=== PATIENT | male | born 1940 | race Caucasian/White ===

== ENCOUNTER 2016-12-26 15:54 | Inpatient (IN) | payer MEDICARE ==
[2016-12-26] MEDS ORDERED: Chloroprocaine 2%* 20 ML VIAL ONE (17:10)
[2016-12-26] MEDS ORDERED: Midazolam* 1 MG/ML 2 ML VIAL (2 MG) ONE ×2 (17:11→17:33)
[2016-12-26] MEDS ORDERED: fentaNYL* 50 MCG/ML 2 ML VIAL (100 MCG VIAL) ONE ×2 (17:11→19:24)
[2016-12-26] MEDS ORDERED: Ondansetron INJ* 2 MG/ML VIAL IV PRN (17:47)
[2016-12-26] MEDS ORDERED: HYDROcodone/ACETAMIN 5-325 MG* 1 TAB PO PRN (17:47)
[2016-12-26] MEDS ORDERED: Phenylephrine IV* 40 MCG/ML 10 ML SYRINGE IV PUSH PRN (18:23)
[2016-12-26] MEDS ORDERED: Furosemide IV* 10 MG/ML 2 ML VIAL (20 MG) ONE (19:19)
[2016-12-26] MEDS: fentaNYL* 50 MCG/ML 2 ML VIAL (100 MCG VIAL) IV PRN ×2 (19:25→19:31)
[2016-12-26] MEDS ORDERED: Acetaminophen TAB* 325 MG PO PRN (20:01)
[2016-12-26] MEDS: oxyCODONE/Acetamin 5/325 MG* TAB PO PRN (20:17)
[2016-12-26] MEDS: Oxybutynin TAB* 5 MG PO SCH (22:02)
[2016-12-27] MEDS: oxyCODONE/Acetamin 5/325 MG* TAB PO PRN (03:43)
[2016-12-27] MEDS ORDERED: oxyCODONE/Acetamin 5/325 MG* TAB PO PRN (04:00)
--- NOTE | 2016-12-27 05:04 | OP ---
DATE OF OPERATION: 12/26/16 - ROOM #333 DATE OF : 36 SURGEON: Arya Song MD ANESTHESIOLOGIST: Dr. Hester. ANESTHESIA: Spinal. PRE-OP DIAGNOSES: 1. Gross hematuria. 2. Clot retention. 3. Prostate enlargement. POST-OP DIAGNOSES: 1. Gross hematuria. 2. Clot retention. 3. Prostate enlargement. OPERATIVE PROCEDURE: Cystoscopy, clot evacuation, transurethral fulguration of bleeding from bladder neck and prostate. INDICATIONS: Jay Jay Lundberg is a 76-year-old gentleman with longstanding history of prostate enlargement. He has been on Flomax and Proscar, and recently after shoveling some snow, started having gross hematuria. He was evaluated in the office and was noted to have multiple clots in the bladder with an enlarged prostate. I tried to manage him conservatively and placed a 24 -Mosotho Barajas catheter and brought him back for repeated irrigation, but he continues to have persistent clot retention and hematuria and is now being brought in for operative management. COMPLICATIONS: None. ESTIMATED BLOOD LOSS: 50 cc. CATHETER: 24-Mosotho 30 cc Barajas. OPERATIVE FINDINGS: 1. Markedly enlarged vascular prostate. 2. Multiple clots in the urinary bladder. 3. Multiple large blood vessels close to the bladder neck posteriorly with bleeding coming from the bladder neck and prostate. POSTOPERATIVE CONDITION: Stable. DESCRIPTION OF PROCEDURE: After induction of spinal anesthesia, the patient was placed in dorsal lithotomy position. Sequential compression devices were in place and functioning. 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 The prostate was markedly enlarged and vascular with bleeding noted from the right lobe of the prostatic urethra. The bladder was entered, multiple clots were noted in the bladder and were evacuated. There were multiple large blood vessels coursing towards the bladder neck posteriorly and some of these were bleeding at the level of the bladder neck and these were also separately cauterized. The right and left ureteral orifices were carefully identified and preserved throughout the procedure. I did not attempt to do a transurethral resection of the prostate given the active bleeding and he probably will require that at a later date. At the end of the procedure, hemostasis appeared reasonably satisfactory and a 24-Mosotho Barajas was placed for bladder drainage. The patient tolerated the procedure satisfactorily and was transferred back to the recovery area in stable condition. CC: Dr. Kody Ortiz* [id number]/[facility] #: [id number] [facility] NETWORKJed
[2016-12-27] MEDS: Oxybutynin TAB* 5 MG PO SCH ×3 (05:55→21:33)
[2016-12-27] MEDS: Multivitamins/Minerals TAB PO SCH (09:34)
[2016-12-27] MEDS: Tamsulosin CAP* 0.4 MG PO SCH (09:34)
[2016-12-27] MEDS: Finasteride TAB* 5 MG PO SCH (09:34)
[2016-12-27] MEDS: Cyanocobalamin TAB* 500 MCG PO SCH (09:35)
[2016-12-27] MEDS: Docusate CAP* 100 MG PO SCH ×2 (14:44→20:17)
[2016-12-28] MEDS: Oxybutynin TAB* 5 MG PO SCH (05:56)
[2016-12-28] MEDS ORDERED: Furosemide IV* 10 MG/ML 2 ML VIAL (20 MG) IV ONE (06:00)
[2016-12-28 08:06] VITALS: BP 137/64
[2016-12-28] MEDS: Docusate CAP* 100 MG PO SCH (08:07)
[2016-12-28] MEDS: Tamsulosin CAP* 0.4 MG PO SCH (08:07)
[2016-12-28] MEDS: Multivitamins/Minerals TAB PO SCH (08:07)
[2016-12-28] MEDS: Cyanocobalamin TAB* 500 MCG PO SCH (08:07)
[2016-12-28] MEDS: Finasteride TAB* 5 MG PO SCH (08:07)
--- NOTE | 2016-12-29 05:53 | DS ---
DISCHARGE SUMMARY: DATE OF ADMISSION: 12/26/16 DATE OF DISCHARGE: 12/28/16 AGE: 76 years, male. ADMITTING DIAGNOSES: 1. Gross hematuria. 2. Clot retention. 3. Prostate enlargement. SURGICAL PROCEDURES ON THIS ADMISSION: On 12/26/16, transurethral fulguration of bleeding from pros bryant and bladder neck. ADMITTING HISTORY AND HOSPITAL COURSE: Jay Jay Lundberg is a 76-year-old gentleman with a longstanding history of prostate enlargement. He has had recurrent episodes of gross hematuria and clot retenti on, which were initially managed with Barajas catheter placement and irrigation. However, because of persistence of the hematuria and clot retention, he was admitted on 12/26/16. For details, please see admitting H and P. On 12/26/16, he underwent transurethral fulguration of bleeding from bladder and prostate under spin al anesthesia. He was admitted afterwards for observation and Barajas catheter was kept on traction. This continued to be reasonably clear urine and the traction was then released and he was discharge d home on 12/28/[address] in place, for followup as per outpatient protocol. [id number]/[facility] #: [id number]
== END 2016-12-28 10:55 | disposition home or self-care (01) | DRG 664 ==
LOC: OR 15:54 → SSU 20:05 → OBSVTOIN 12-27 08:58
PROVIDERS: ADMIT Urology; ATTEND Urology
PROC: 0W3R8ZZ Control Bleeding in Genitourinary Tract, Via Natural or Artificial Opening Endoscopic (ICD-10-PCS; principal; 2016-12-26 17:00)
DX: R31.0 Gross hematuria (principal); N32.89 Other specified disorders of bladder; N40.1 Benign prostatic hyperplasia with lower urinary tract symptoms; R33.8 Other retention of urine
CPT/HCPCS: 36415; 74178; 76377; 80048; 85025; A9270-GY; G0379; J0696; J1580; J1940; J2250; J2400; J3010; Q9967